=== PATIENT | male | born 1960 | race Caucasian/White ===

== ENCOUNTER 2021-06-18 03:29 | Emergency (ER) | payer OTHER ==
[~2021-06-18] VITALS: Ht 188 cm; Wt 85.4 kg
[2021-06-18 03:42] VITALS: BP 133/85
[2021-06-18] MEDS ORDERED: CITA10TA8 PO (03:48)
[2021-06-18] MEDS ORDERED: RABIES VACCINE /PF 2.5 UNITS IM-VACC ONE (03:56)
[2021-06-18] MEDS ORDERED: RABIES IMMUNE GLOBULIN/PF 300 UNITS/ML,1ML IM ONE (04:00)
[2021-06-18] MEDS ORDERED: LIDOCAINE-MPF 1%, 5ML ONE (04:26)
[2021-06-18] MEDS ORDERED: LIDOCAINE 1%, 10ML INFIL ONE (04:30)
[2021-06-18] MEDS ORDERED: BACITRACIN ZINC OINT 500U/GM, 0.9 GM ONE (04:49)
--- NOTE | 2021-06-18 05:14 | NUR ---
Patient/Caregiver given discharge instructions and they have confirmed that they understand the instructions. Patient ambulatory with steady gait. NAD, all questions answered appropriately, denies additional needs at this time. No personal belongings left in room after discharge.
== END 2021-06-18 05:23 | disposition home or self-care (01) ==
LOC: ED 04:00
DX: S61.451A Open bite of right hand, initial encounter (principal); S61.411A Laceration without foreign body of right hand, initial encounter; W55.51XA Bitten by raccoon, initial encounter; Y93.89 Activity, other specified; Y92.009 Unspecified place in unspecified non-institutional (private) residence as the place of occurrence of the external cause; Y99.8 Other external cause status
CPT/HCPCS: 12001; 90375; 90471; 90675; 96372; 99284; J3490

== ENCOUNTER 2021-06-21 06:11 | Emergency (ER) | payer OTHER ==
[~2021-06-21] VITALS: Ht 188 cm; Wt 86.6 kg
[~2021-06-21 06:11] MED LIST: CITA10TA8 PO
[2021-06-21 06:12] VITALS: BP 121/72
[2021-06-21] MEDS ORDERED: RABIES VACCINE /PF 2.5 UNITS IM-VACC ONE (06:30)
--- NOTE | 2021-06-21 06:45 | NUR ---
Patient medicated per dec. Patient given discharge instructions and they have confirmed that they understand the instructions. Patient ambulatory with steady gait. NAD, all questions answered appropriately, denies additional needs at this time. No personal belongings left in room after discharge.
== END 2021-06-21 06:47 | disposition home or self-care (01) ==
LOC: ED 06:28
DX: Z20.3 Contact with and (suspected) exposure to rabies (principal)
CPT/HCPCS: 90471; 90675; 99283

== ENCOUNTER 2021-06-25 06:15 | Emergency (ER) | payer OTHER ==
[~2021-06-25] VITALS: Ht 188 cm; Wt 90.0 kg
[2021-06-25 06:18] VITALS: BP 126/78
[2021-06-25] MEDS ORDERED: RABIES VACCINE /PF 2.5 UNITS IM-VACC ONE (06:40)
--- NOTE | 2021-06-25 06:54 | NUR ---
REPORT FROM KACEY REDDY. PT RESTING IN [facility], EYES CLOSED, NADN AT THIS TIME, TM.
== END 2021-06-25 08:02 | disposition home or self-care (01) ==
LOC: ED 06:18
DX: Z20.3 Contact with and (suspected) exposure to rabies (principal)
CPT/HCPCS: 90471; 90675; 99283

== ENCOUNTER 2021-07-01 06:20 | Emergency (ER) | payer OTHER ==
[~2021-07-01] VITALS: Ht 188 cm; Wt 86.9 kg
[2021-07-01 06:25] VITALS: BP 114/72
--- NOTE | 2021-07-01 06:50 | NUR ---
Report to KACEY Beasley no further questions at this time.
[2021-07-01] MEDS ORDERED: RABIES VACCINE /PF 2.5 UNITS IM-VACC ONE (07:00)
== END 2021-07-01 07:10 | disposition home or self-care (01) ==
LOC: ED 06:44
DX: Z20.3 Contact with and (suspected) exposure to rabies (principal); L29.9 Pruritus, unspecified
CPT/HCPCS: 90471; 90675; 99283